=== PATIENT | female | born 1960 | race Caucasian/White ===

== ENCOUNTER → 2016-08-11 | Outpatient (CLI) | payer OTHER ==
[~2016-08-11] MED LIST: ALDACTONE25 MG PO; ALL DAY ALLERGY10 MG PO; ASPIRIN EC81 MG PO; BENTYL 10MG CAP10 MG PO; BUSPIRONE HCL15 MG PO; CALCIUM 600 +1 EAC8 PO; CELEXA40 MG PO; DICLOFENAC SODI75 MG PO; DILANTIN100 MG PO; ELAVIL 10 MG TA10 MG PO; FIORICET TAB1 EA PO; FLEXERIL 10 MG10 MG PO; HYDROCHLOROTH12.5 M1 PO; IMITREX100 MG PO; INVEGA6 MG PO; LASIX20 MG PO; MAXZIDE 37.5/21 EACH PO; MIRTAZAPINE30 MG PO; NEXIUM40 MG PO; NORCO 5-325 TA1 EACH PO; NORVASC 5 MG TAB5 MG PO; ONCE DAILY1 EACH PO; PRILOSEC OTC20 MG PO; QUETIAPINE FUMA50 MG PO; SEROQUEL200 MG PO; TOPAMAX 100 MG100 MG PO; TOPAMAX25 MG PO; TUDORZA PRESS400 MCG INH; VENTOLIN HFA 66.7 GM INH; ZESTRIL10 MG PO
== END ==
LOC: MAMO 08-05 13:40
DX: Z12.31 Encounter for screening mammogram for malignant neoplasm of breast (principal)
CPT/HCPCS: G0202

== ENCOUNTER 2016-08-27 11:15 | Inpatient (IN) | payer OTHER ==
[~2016-08-27] VITALS: Ht 154.9 cm; Wt 43.5 kg
[~2016-08-27 11:15] MED LIST changes: -ALDACTONE25 MG PO; -FLEXERIL 10 MG10 MG PO; -LASIX20 MG PO; -MAXZIDE 37.5/21 EACH PO; -NORCO 5-325 TA1 EACH PO; -NORVASC 5 MG TAB5 MG PO; -ONCE DAILY1 EACH PO; -PRILOSEC OTC20 MG PO; -TOPAMAX25 MG PO; -ZESTRIL10 MG PO
[2016-08-27 12:57] LABS: HEMOGLOBIN 12.1 gm/dl (12.3-15.3); RED BLOOD COUNT 4.97 M/UL (4.00-5.10)
[2016-08-28 06:06] LABS: HEMOGLOBIN 11.5 gm/dl (12.3-15.3); RED BLOOD COUNT 4.75 M/UL (4.00-5.10)
[2016-08-28 06:10] LABS: WHITE BLOOD COUNT 5.9 K/UL (4.5-11.0)
[2017-02-06] MEDS ORDERED: TOPAMAX25 MG PO (22:53)
[2017-02-06] MEDS ORDERED: NORVASC 5 MG TAB5 MG PO (22:54)
[2017-02-06] MEDS ORDERED: ZESTRIL10 MG PO (22:54)
[2017-02-06] MEDS ORDERED: ALDACTONE25 MG PO (22:55)
[2017-02-06] MEDS ORDERED: LASIX20 MG PO (22:55)
[2017-02-06] MEDS ORDERED: ONCE DAILY1 EACH PO (22:57)
[2017-02-07] MEDS ORDERED: FLEXERIL 10 MG10 MG PO (10:55)
[2017-02-07] MEDS ORDERED: PRILOSEC OTC20 MG PO (10:57)
[2017-02-07] MEDS ORDERED: MAXZIDE 37.5/21 EACH PO (10:57)
[2017-02-10] MEDS ORDERED: NORCO 5-325 TA1 EACH PO (10:43)
== END 2016-08-28 20:32 | disposition home or self-care (01) | DRG 845 ==
LOC: ER1 11:15 → ZEROF 15:51 → M/S 15:51
PROVIDERS: Emergency Medicine; ADMIT Internal Medicine
DX: E88.09 Other disorders of plasma-protein metabolism, not elsewhere classified (principal); J43.9 Emphysema, unspecified; R19.7 Diarrhea, unspecified; R74.8 Abnormal levels of other serum enzymes; G40.909 Epilepsy, unspecified, not intractable, without status epilepticus; Z90.49 Acquired absence of other specified parts of digestive tract; Z79.899 Other long term (current) drug therapy; R63.4 Abnormal weight loss; Z82.49 Family history of ischemic heart disease and other diseases of the circulatory system; Z83.6 Family history of other diseases of the respiratory system
CPT/HCPCS: 36415; 71010; 71020; 80053; 82550; 82553; 83605; 83735; 83874; 83880; 84100; 84439; 84443; 84484; 85025; 85610; 85730; 93005; 96374; 96375; 99284; G0378; J1650; J2405; J7030

== ENCOUNTER → 2017-02-06 | Outpatient (CLI) | payer OTHER ==
[~2017-02-06] MED LIST changes: +ALDACTONE25 MG PO; +FLEXERIL 10 MG10 MG PO; +LASIX20 MG PO; +MAXZIDE 37.5/21 EACH PO; +NORVASC 5 MG TAB5 MG PO; +ONCE DAILY1 EACH PO; +PRILOSEC OTC20 MG PO; +TOPAMAX25 MG PO; +ZESTRIL10 MG PO
== END ==
LOC: RAD 13:58
DX: M79.652 Pain in left thigh (principal); S72.012A Unspecified intracapsular fracture of left femur, initial encounter for closed fracture
CPT/HCPCS: 73552